=== PATIENT | female | born 1960 | race Caucasian/White ===

== ENCOUNTER → 2017-01-05 | Outpatient (CLI) | payer OTHER ==
[~2017-01-05] MED LIST: DOC-Q-LACE100 MG PO; DRONABINOL5 MG PO; DULOXETINE HCL60 MG PO; FLEXERIL 10 MG10 MG PO; LANTUS100 UNIT/1 SQ; LEVOTHYROXINE100 MCG PO; LORTAB 7.5-3251 EACH PO; LOVASTATIN20 MG PO; LOVENOX SYR100 MG/ML SQ; NEURONTIN 300300 MG PO; NORCO 7.5-3251 EACH PO; OMEPRAZOLE20 M1 PO; PHENERGAN 25 MG25 M1 PO; SENNA8.6 MG PO; TRAZODONE HCL150 MG PO; VITAMIN D50000 UNIT PO; WELLBUTRIN SR150 MG PO
== END ==
LOC: KOH-I 12-31 10:30 → EMI 14:24
DX: C34.2 Malignant neoplasm of middle lobe, bronchus or lung (principal); C77.2 Secondary and unspecified malignant neoplasm of intra-abdominal lymph nodes; J91.0 Malignant pleural effusion; C79.51 Secondary malignant neoplasm of bone
CPT/HCPCS: 72157; 72158; A9577; J7050

== ENCOUNTER → 2017-02-23 | Outpatient (CLI) | payer OTHER | LOC: EMI 15:18 | DX: C34.2 Malignant neoplasm of middle lobe, bronchus or lung (principal); C77.1 Secondary and unspecified malignant neoplasm of intrathoracic lymph nodes; C79.51 Secondary malignant neoplasm of bone; J91.0 Malignant pleural effusion | CPT/HCPCS: 70553; A9577; J7050 ==

== ENCOUNTER 2017-03-14 00:30 | Observation (INO) | payer OTHER ==
[~2017-03-14] VITALS: Ht 170.2 cm; Wt 95.7 kg
[~2017-03-14 00:30] MED LIST changes: -DRONABINOL5 MG PO; -FLEXERIL 10 MG10 MG PO; -LOVENOX SYR100 MG/ML SQ; -PHENERGAN 25 MG25 M1 PO; -SENNA8.6 MG PO
[2017-03-14 01:53] LABS: HEMOGLOBIN 12.8 gm/dl (12.3-15.3); RED BLOOD COUNT 4.5 M/UL (4.00-5.10); WHITE BLOOD COUNT 8.1 K/UL (4.5-11.0)
[2017-03-14 02:21] LABS: BUN/CREATININE RATIO 24 (0-10)
[2017-03-14] MEDS ORDERED: FLEXERIL 10 MG10 MG PO (09:05)
[2017-03-14] MEDS ORDERED: PHENERGAN 25 MG25 M1 PO (10:06)
[2017-03-14] MEDS ORDERED: DRONABINOL5 MG PO (10:07)
[2017-03-15 05:54] LABS: HEMOGLOBIN 11.6 gm/dl (12.3-15.3); RED BLOOD COUNT 4.11 M/UL (4.00-5.10); WHITE BLOOD COUNT 7.3 K/UL (4.5-11.0)
[2017-03-15 06:12] LABS: BUN/CREATININE RATIO 21 (0-10)
[2017-03-15] MEDS ORDERED: SENNA8.6 MG PO (13:10)
[2017-03-15] MEDS ORDERED: LOVENOX SYR100 MG/ML SQ (13:14)
== END 2017-03-15 16:36 | disposition home or self-care (01) ==
LOC: ER1 00:30 → M/S 05:02 → ZEROF 05:02 → M/S 07:47
PROVIDERS: Family Medicine; ADMIT Internal Medicine
DX: I26.99 Other pulmonary embolism without acute cor pulmonale (principal); I82.401 Acute embolism and thrombosis of unspecified deep veins of right lower extremity; C34.91 Malignant neoplasm of unspecified part of right bronchus or lung; C78.7 Secondary malignant neoplasm of liver and intrahepatic bile duct; C79.51 Secondary malignant neoplasm of bone; C79.31 Secondary malignant neoplasm of brain; R07.81 Pleurodynia; R79.89 Other specified abnormal findings of blood chemistry; R74.8 Abnormal levels of other serum enzymes; I10 Essential (primary) hypertension; E78.5 Hyperlipidemia, unspecified; E11.9 Type 2 diabetes mellitus without complications; E87.2 Acidosis; K59.00 Constipation, unspecified; E87.1 Hypo-osmolality and hyponatremia; F17.210 Nicotine dependence, cigarettes, uncomplicated; Z79.891 Long term (current) use of opiate analgesic; Z79.4 Long term (current) use of insulin; Z79.899 Other long term (current) drug therapy; Z85.41 Personal history of malignant neoplasm of cervix uteri; Z90.710 Acquired absence of both cervix and uterus
CPT/HCPCS: 36415; 70450; 71020; 80053; 82009; 82550; 82553; 82962; 83605; 83874; 84484; 85025; 85379; 85610; 85730; 93005; 93970; 96372; 96374; 96375; 96376; 99285; G0378; G0480; J1650; J2270; J2405; J7050; Q9963

== ENCOUNTER 2017-03-26 15:15 | Inpatient (IN) | payer OTHER ==
[~2017-03-26] VITALS: Ht 175.3 cm; Wt 92.6 kg
[~2017-03-26 15:15] MED LIST changes: +DRONABINOL5 MG PO; +FLEXERIL 10 MG10 MG PO; +LOVENOX SYR100 MG/ML SQ; +PHENERGAN 25 MG25 M1 PO; +SENNA8.6 MG PO
[2017-03-26 16:15] LABS: HEMOGLOBIN 10.1 gm/dl (12.3-15.3); RED BLOOD COUNT 3.66 M/UL (4.00-5.10); WHITE BLOOD COUNT 9.9 K/UL (4.5-11.0)
[2017-03-26 16:41] LABS: BUN/CREATININE RATIO 24 (0-10)
[2017-03-27 04:40] LABS: HEMOGLOBIN 10.1 gm/dl (12.3-15.3); RED BLOOD COUNT 3.68 M/UL (4.00-5.10); WHITE BLOOD COUNT 9.1 K/UL (4.5-11.0)
[2017-03-28 05:38] LABS: HEMOGLOBIN 9.8 gm/dl (12.3-15.3); RED BLOOD COUNT 3.58 M/UL (4.00-5.10)
== END 2017-03-30 08:15 | disposition home health service (06) | DRG 871 ==
LOC: ER1 15:15 → CCU 17:28 → ZEROF 17:28 → CCU 20:28
PROVIDERS: Emergency Medicine; ADMIT Hospitalist
DX: A41.9 Sepsis, unspecified organism (principal); G93.40 Encephalopathy, unspecified; J18.9 Pneumonia, unspecified organism; J96.01 Acute respiratory failure with hypoxia; C34.32 Malignant neoplasm of lower lobe, left bronchus or lung; C78.7 Secondary malignant neoplasm of liver and intrahepatic bile duct; N17.9 Acute kidney failure, unspecified; C79.51 Secondary malignant neoplasm of bone; Z51.5 Encounter for palliative care; E78.5 Hyperlipidemia, unspecified; I10 Essential (primary) hypertension; E11.9 Type 2 diabetes mellitus without complications; R74.0 Nonspecific elevation of levels of transaminase and lactic acid dehydrogenase [LDH]; F17.210 Nicotine dependence, cigarettes, uncomplicated; Z86.718 Personal history of other venous thrombosis and embolism; Z79.4 Long term (current) use of insulin; Z79.899 Other long term (current) drug therapy; Z79.01 Long term (current) use of anticoagulants; Z86.711 Personal history of pulmonary embolism; Z85.118 Personal history of other malignant neoplasm of bronchus and lung; Z90.2 Acquired absence of lung [part of]
CPT/HCPCS: 36415; 36600; 51702; 70450; 71250; 80048; 80053; 80202; 81001; 82140; 82550; 82553; 82803; 82962; 83605; 83735; 83874; 84484; 85025; 85027; 85610; 85730; 86140; 87040; 87086; 87278; 93005; 94660; 96374; 96375; 99285; G0480; J1650; J1956; J2060; J2270; J2543; J2550; J3370; J7030; J7050; J7070